=== PATIENT | female | born 1935 | race Caucasian/White ===

== ENCOUNTER 2023-12-24 20:18 | Emergency (ER) | payer OTHER ==
[~2023-12-24] VITALS: Ht 152.4 cm; Wt 61.2 kg
[2023-12-24 20:52] VITALS: BP_SYST 117; PULSE 86; RESP 20; TEMP 97; O2SAT 97
[2023-12-24 22:48] LABS: BASOPHILS # (AUTO) 0.1 K/uL (0.0-0.2); BASOPHILS % (AUTO) 0.8 % (0.0-2.0); EOSINOPHILS % (AUTO) 0.6 % (0.0-4.0); HEMATOCRIT 33.2 % (36-48); HEMOGLOBIN 10.5 g/dL (12.0-16.0); LYMPHOCYTES # (AUTO) 1.7 K/uL (1.0-5.5); LYMPHOCYTES % (AUTO) 22.5 % (20.5-51.5); MEAN CORPUSCULAR HEMOGLOBIN 26 pg (27-31); MEAN CORPUSCULAR HGB CONC 32 % (32-36); MEAN CORPUSCULAR VOLUME 80 fL (79.0-98.0); MONOCYTES # (AUTO) 0.6 K/uL (0.0-1.0); MONOCYTES % (AUTO) 8.3 % (1.7-9.3); NEUTROPHILS # (AUTO) 5.2 K/uL (1.8-7.7); NEUTROPHILS % (AUTO) 67.8 % (40.0-70.0); PLATELET COUNT (AUTO) 221 K/uL (130-430); RED BLOOD CELL COUNT(AUTO) 4.14 MIL/uL (4.2-6.2); RED CELL DISTRIBUTION WIDTH 16.3 % (9.0-15.0); WHITE BLOOD COUNT (AUTO) 7.7 K/uL (4.8-10.8)
[2023-12-24 22:58] LABS: ALANINE AMINOTRANSFERASE 58 U/L (12-78); ALBUMIN 3.5 g/dL (3.4-4.8); ANION GAP 7 (5-15); ASPARTATE AMINOTRANSFERASE 52 U/L (10-37); BILIRUBIN,DIRECT 0.3 mg/dL (0.0-0.3); CALCIUM 8.6 mg/dL (8.4-11.0); CARBON DIOXIDE 26 mmol/L (23-29); CHLORIDE 101 mmol/L (98-107); GLUCOSE 96 mg/dL (74-106); POTASSIUM 4.5 mmol/L (3.5-5.1); SODIUM SERUM 134 mmol/L (136-145); TOTAL BILIRUBIN 0.9 mg/dL (0.0-1.0); TOTAL PROTEIN, SERUM 6.6 g/dL (6.4-8.3); UREA NITROGEN, BLOOD 32 mg/dL (8-21)
[2023-12-25 00:18] LABS: BILIRUBIN,URINE NEGATIVE (NEGATIVE); BLOOD, URINE NEGATIVE (NEGATIVE); COLOR,URINE YELLOW (YELLOW); GLUCOSE,URINE NEGATIVE (NEGATIVE); KETONES,URINE NEGATIVE (NEGATIVE)
[2023-12-25 00:19] LABS: CLARITY/URINE HAZY (CLEAR); LEUKOCYTE ESTERASE ,URINE NEGATIVE (NEGATIVE); NITRITE, URINE NEGATIVE (NEGATIVE); PROTEIN URINE 1+ (NEGATIVE); UROBILINOGEN,URINE 0.2 (0.2-1.0)
[2023-12-25 00:22] LABS: RBC,URINE 0-3 /HPF (0-3); WBC,URINE 0-3 /HPF (0-3)
[2023-12-25 00:23] LABS: BACTERIA,URINE None Seen /HPF (None Seen)
[2023-12-25 00:28] VITALS: BP_SYST 166; PULSE 64; RESP 18; TEMP 97.5; O2SAT 98
== END 2023-12-25 00:28 | disposition home or self-care (01) ==
LOC: SED 20:18
DX: K80.80 Other cholelithiasis without obstruction (principal); R10.9 Unspecified abdominal pain; R14.0 Abdominal distension (gaseous); R14.2 Eructation; I10 Essential (primary) hypertension; Z95.4 Presence of other heart-valve replacement; Z88.6 Allergy status to analgesic agent; E03.9 Hypothyroidism, unspecified
CPT/HCPCS: 36415; 80048; 80076; 81000; 81001; 81015; 85025; 99284